=== PATIENT | female | born 1985 | race African-American/Black ===

== ENCOUNTER 2019-01-26 21:02 | Inpatient (IN) ==
[~2019-01-26 21:02] MED LIST: LORazepam 2 MG/1 ML VIAL IV STA
[2019-01-26] MEDS ORDERED: SODIUM CHLORIDE 0.9% 1,000 ML IV STA (21:31)
[2019-01-26] MEDS ORDERED: ALBUTEROL/IPRATROPIUM 3 ML NEB RESP TX STA (21:31)
[2019-01-26] MEDS ORDERED: hydrALAZINE 20 MG/1 ML VIAL IV STA (21:33)
[2019-01-26] MEDS ORDERED: LORazepam 2 MG/1 ML VIAL IV STA (21:50)
[2019-01-26] MEDS ORDERED: LORazepam 2 MG/1 ML VIAL ONE (21:52)
[2019-01-26] MEDS: NITROGLYCERIN DRIP 50 MG/250 ML BOTTLE IV SCH (22:06)
[2019-01-26] MEDS ORDERED: VECURONIUM 10 MG VIAL IV STA (22:24)
[2019-01-26] MEDS ORDERED: ETOMIDATE 20 MG/10 ML VIAL IV STA (22:24)
[2019-01-26] MEDS ORDERED: ROCURONIUM 100 MG/10 ML VIAL IV STA (22:25)
[2019-01-26] MEDS ORDERED: PROPOFOL 1,000 MG/100 ML BOTTLE IV ONE (22:27)
[2019-01-26] MEDS: ALBUTEROL 2.5 MG/3 ML NEB RESP TX SCH (22:59)
[2019-01-26] MEDS ORDERED: ETOMIDATE 20 MG/10 ML VIAL IV ONE (23:29)
[2019-01-26] MEDS ORDERED: ROCURONIUM 100 MG/10 ML VIAL IV ONE (23:29)
[2019-01-26 23:32] LABS: Basophils % 0.3 % (0.0-0.8); Eosinophils # 0.1 10*3/uL (0.0-0.87); Eosinophils % 0.6 % (0.00-10.9); Hematocrit 21.1 VOL% (35.7-47.0); Immature Granulocytes % 2.7 %; Immature Granulocytes Absolute 0.24 #; Lymphocytes # 1.6 10*3/uL (1.4-4.0); Lymphocytes % 17.5 % (21.3-54.2); Mean Corpuscular HGB Conc 29.9 GM/DL (32-36); Mean Corpuscular Volume 85.4 FL (87-102); Monocytes % 4.3 % (1.7-12.7); NRBC # 0.06 10*3/uL; Neutrophils % 74.6 % (38.7-73.9); Platelet Count 85 T/CUMM (130-400); Red Blood Count 2.47 MC/CUMM (3.8-5.5); Red Cell Distribution Width 19.3 % (9.3-17.3)
[2019-01-26 23:33] LABS: Albumin 2.7 G/DL (3.4-5.0); Bilirubin,Total 0.6 MG/DL (0.2-1.0); Calcium 7.9 MG/DL (8.5-10.1); Osmolality,Calculated 279.2 MOS/KG (273-304); Total Protein 8.9 G/DL (6.4-8.3)
[2019-01-26 23:34] LABS: Hemoglobin 6.3 GM/DL (12.0-16.0)
[2019-01-26 23:40] LABS: Band Neutrophils 3 % (0-10); Lymphocytes 15 % (20-55); Segmented Neutrophils 79 % (50-85); Total Cells Counted 100
[2019-01-26 23:40] LABS: ABG Base Excess -9.9 MMOL/L (-2.5-2.5); ABG HCO3 16.4 MMOL/L (20-26); ABG Oxygen Saturation 99.5 % (95-100); ABG PCO2 33.8 MM HG (35-48); ABG PH 7.283 (7.35-7.45); ABG TCO2 15.3 MMOL/L (23-27); Allen Test Positive; Pt O2 Delivery Device Ventilator
[2019-01-26 23:41] LABS: Anisocytosis 1+; Hypochromasia 1+
[2019-01-26 23:42] LABS: Acanthocytes Moderate; Ovalocytes Few; Platelet Estimate Decreased
[2019-01-27] MEDS ORDERED: PROPOFOL 1,000 MG/100 ML BOTTLE IV SCH (01:30)
[2019-01-27] MEDS: PROPOFOL 1,000 MG/100 ML BOTTLE IV SCH (02:00)
[2019-01-27] MEDS ORDERED: FUROSEMIDE 40 MG/4 ML VIAL IV ONE (02:00)
[2019-01-27] MEDS: PANTOPRAZOLE 40 MG VIAL IV SCH ×2 (02:13→21:30)
[2019-01-27] MEDS ORDERED: SODIUM CHLORIDE 0.9% 1,000 ML IV PRN (02:51)
[2019-01-27 02:54] LABS: % Iron Saturation 6.9 % (18-50); Ferritin 45.7 ng/ml (8-252)
[2019-01-27 03:01] LABS: ABG Base Excess -10.3 MMOL/L (-2.5-2.5); ABG HCO3 16.2 MMOL/L (20-26); ABG Oxygen Saturation 98.6 % (95-100); ABG PCO2 36.7 MM HG (35-48); ABG PH 7.253 (7.35-7.45); ABG TCO2 15.2 MMOL/L (23-27); Allen Test Positive; Pt O2 Delivery Device Ventilator
[2019-01-27 03:11] LABS: PT Patient Result 10.8 SECS; Partial Thromboplastin Time 27.7 SECS (0-40)
[2019-01-27 03:13] LABS: Amorphous Crystals,Urine Occasional /HPF (Few); Apearance,Urine CLEAR (Clear); Bilirubin,Urine Negative (Negative); Blood, Urine Moderate mg/dL (Negative); Glucose,Urine (UA) Negative (Negative); Hyaline Casts,Urine 1 /LPF (0-3); Ketones,Urine 5 mg/dL (Negative); Mucus,Urine Occasional /LPF (Occasional); Nitrite,Urine Negative (Negative); Protein,Urine 30 MG/DL; RBC,Urine 20 /HPF (0-4); Squamous Epithelial Cell,Urine Occasional /HPF (0-10); Urine Color Straw (Yellow); Urine Specific Gravity 1.008 (1.001-1.035); Urine Urobilinogen < 2.0 EU/DL (0.2-1.0); WBC,Urine 1 /HPF (0-6)
[2019-01-27 03:14] LABS: Albumin 2.6 G/DL (3.4-5.0); Bilirubin,Total 0.7 MG/DL (0.2-1.0); Calcium 7.7 MG/DL (8.5-10.1); Osmolality,Calculated 278.9 MOS/KG (273-304); Total Protein 8.4 G/DL (6.4-8.3)
[2019-01-27 03:18] LABS: Barbiturates Screen,Urine Negative (Negative); Benzodiazepines Screen,Urine Negative (Negative); Cannabinoid Screen,Urine Negative (Negative); Opiate Screen,Urine Negative (Negative); Phencyclidine Screen,Urine Negative (Negative)
[2019-01-27 06:08] LABS: HIV Antigen/Antibody Result Reactive (Nonreactive)
[2019-01-27 06:10] LABS: Basophils % 0.2 % (0.0-0.8); Eosinophils % 0.1 % (0.00-10.9); Hematocrit 26.1 VOL% (35.7-47.0); Hemoglobin 8.1 GM/DL (12.0-16.0); Immature Granulocytes % 2.5 %; Immature Granulocytes Absolute 0.21 #; Lymphocytes # 1.6 10*3/uL (1.4-4.0); Mean Corpuscular Volume 88.2 FL (87-102); Monocytes % 5.4 % (1.7-12.7); NRBC # 0.08 10*3/uL; Neutrophils % 72.8 % (38.7-73.9); Platelet Count 80 T/CUMM (130-400); Red Blood Count 2.96 MC/CUMM (3.8-5.5); Red Cell Distribution Width 17.8 % (9.3-17.3); White Blood Count 8.4 T/CUMM (4-12)
[2019-01-27] MEDS ORDERED: niCARdipine INJ 25 MG in SODIUM CHLORIDE 0.9% 240 ML IV PRN (07:08)
[2019-01-27 07:17] LABS: Hypochromasia 1+; Lymphocytes 9 % (20-55); Nucleated Red Blood Cells 2 (0-5); Ovalocytes Slight; Platelet Estimate Decreased; Segmented Neutrophils 84 % (50-85); Total Cells Counted 100
[2019-01-27] MEDS: METOPROLOL TARTRATE 5 MG/5 ML VIAL IV SCH ×3 (08:49→18:59)
[2019-01-27] MEDS: methylPREDNISolone SOD SUC 40 MG/1 ML VIAL IV SCH (12:11)
[2019-01-27] MEDS: SULFAMETH IV SCH (13:10)
[2019-01-27] MEDS: DEXTROSE 5% IV SCH (13:10)
[2019-01-27] MEDS: TRIMETH IV SCH (13:10)
[2019-01-27] MEDS ORDERED: FUROSEMIDE 100 MG/10 ML VIAL IV ONE (14:01)
[2019-01-27] MEDS ORDERED: FUROSEMIDE 100 MG/10 ML VIAL ONE (14:02)
[2019-01-27 15:59] LABS: Hepatitis B Surface Ag Quant < 0.10 Index; Hepatitis B Surface Ag Result Negative (Negative); Hepatitis C Virus Ab Quant 0.09 Index; Hepatitis C Virus Ab Result Negative (Negative)
[2019-01-27] MEDS ORDERED: POTASSIUM CHLORIDE 20 MEQ/15 ML UDCUP PO ONE (19:09)
[2019-01-27] MEDS ORDERED: hydrALAZINE 20 MG/1 ML VIAL IV PRN (21:17)
[2019-01-28] MEDS: NITROGLYCERIN DRIP 50 MG/250 ML BOTTLE IV SCH (00:28)
[2019-01-28] MEDS: TRIMETH IV SCH ×2 (00:37→13:11)
[2019-01-28] MEDS: methylPREDNISolone SOD SUC 40 MG/1 ML VIAL IV SCH ×3 (00:37→23:39)
[2019-01-28] MEDS: SULFAMETH IV SCH ×2 (00:37→13:11)
[2019-01-28] MEDS: DEXTROSE 5% IV SCH ×2 (00:37→13:11)
[2019-01-28] MEDS: PROPOFOL 1,000 MG/100 ML BOTTLE IV SCH ×2 (00:38→13:51)
[2019-01-28] MEDS: METOPROLOL TARTRATE 5 MG/5 ML VIAL IV SCH ×2 (00:43→09:07)
[2019-01-28 04:13] LABS: ABG Base Excess -5.6 MMOL/L (-2.5-2.5); ABG HCO3 18.2 MMOL/L (20-26); ABG Oxygen Saturation 75.7 % (95-100); ABG PCO2 29.4 MM HG (35-48); ABG PH 7.409 (7.35-7.45); ABG PO2 43.7 MM HG (80-95); ABG TCO2 19.1 MMOL/L (23-27); Allen Test Positive; Pt O2 Delivery Device Ventilator
[2019-01-28 04:38] LABS: Basophils % 0.1 % (0.0-0.8); Hematocrit 27.6 VOL% (35.7-47.0); Hemoglobin 8.6 GM/DL (12.0-16.0); Immature Granulocytes % 1.7 %; Immature Granulocytes Absolute 0.24 #; Lymphocytes # 1.5 10*3/uL (1.4-4.0); Lymphocytes % 10.7 % (21.3-54.2); Mean Corpuscular HGB Conc 31.2 GM/DL (32-36); Mean Corpuscular Volume 86.8 FL (87-102); Monocytes % 6.6 % (1.7-12.7); NRBC # 0.05 10*3/uL; Neutrophils % 80.9 % (38.7-73.9); Platelet Count 56 T/CUMM (130-400); Red Blood Count 3.18 MC/CUMM (3.8-5.5); White Blood Count 14.2 T/CUMM (4-12)
[2019-01-28 04:49] LABS: ABG Base Excess -5.5 MMOL/L (-2.5-2.5); ABG HCO3 16.9 MMOL/L (20-26); ABG PH 7.465 (7.35-7.45); ABG TCO2 17.6 MMOL/L (23-27)
[2019-01-28 05:04] LABS: Albumin 2.1 G/DL (3.4-5.0); Bilirubin,Total 0.6 MG/DL (0.2-1.0); Calcium 7.9 MG/DL (8.5-10.1); Osmolality,Calculated 278.4 MOS/KG (273-304); Total Protein 7.5 G/DL (6.4-8.3)
[2019-01-28 06:07] LABS: Anisocytosis 1+; Lymphocytes 1 % (20-55); Microcytosis 1+; Segmented Neutrophils 97 % (50-85); Total Cells Counted 100
[2019-01-28 06:10] LABS: Burr Cells Slight; Platelet Estimate Decreased; Target Cells Slight
[2019-01-28] MEDS ORDERED: ALBUMIN 25% 12.5 GM in PREMIX 1 EACH IV ONE (09:52)
[2019-01-28] MEDS: PANTOPRAZOLE 40 MG VIAL IV SCH (09:55)
[2019-01-28] MEDS: METOPROLOL TARTRATE 25 MG TABLET PER TUBE SCH ×2 (09:55→20:23)
[2019-01-28] MEDS ORDERED: HEPARIN 10,000 UNIT/10 ML VIAL IV PRN (14:57)
[2019-01-29] MEDS: TRIMETH IV SCH ×2 (00:39→15:23)
[2019-01-29] MEDS: DEXTROSE 5% IV SCH ×2 (00:39→15:23)
[2019-01-29] MEDS: SULFAMETH IV SCH ×2 (00:39→15:23)
[2019-01-29 03:32] LABS: ABG Base Excess -1.9 MMOL/L (-2.5-2.5); ABG HCO3 21.6 MMOL/L (20-26); ABG PCO2 31.5 MM HG (35-48); ABG PH 7.453 (7.35-7.45); ABG PO2 174.2 MM HG (80-95); ABG TCO2 22.5 MMOL/L (23-27); Allen Test Positive; Pt O2 Delivery Device Ventilator
[2019-01-29 04:23] LABS: Basophils # 0.1 10*3/uL (0.0-0.2); Basophils % 0.4 % (0.0-0.8); Hematocrit 29.3 VOL% (35.7-47.0); Hemoglobin 9.1 GM/DL (12.0-16.0); Immature Granulocytes Absolute 0.36 #; Lymphocytes # 2.3 10*3/uL (1.4-4.0); Lymphocytes % 12.6 % (21.3-54.2); Mean Corpuscular HGB Conc 31.1 GM/DL (32-36); Mean Corpuscular Volume 85.2 FL (87-102); Monocytes % 8.2 % (1.7-12.7); Neutrophils % 76.8 % (38.7-73.9); Red Blood Count 3.44 MC/CUMM (3.8-5.5); Red Cell Distribution Width 18.6 % (9.3-17.3)
[2019-01-29 04:35] LABS: Platelet Count 47 T/CUMM (130-400)
[2019-01-29 04:54] LABS: Albumin 2.3 G/DL (3.4-5.0); Bilirubin,Total 0.5 MG/DL (0.2-1.0); Calcium 7.8 MG/DL (8.5-10.1); Osmolality,Calculated 274.5 MOS/KG (273-304); Total Protein 7.5 G/DL (6.4-8.3)
[2019-01-29 05:06] LABS: Band Neutrophils 28 % (0-10); Lymphocytes 6 % (20-55); Segmented Neutrophils 59 % (50-85); Total Cells Counted 100
[2019-01-29 05:07] LABS: Acanthocytes 1+; Anisocytosis 1+; Hypochromasia 1+; Platelet Estimate Decreased
[2019-01-29] MEDS: PROPOFOL 1,000 MG/100 ML BOTTLE IV SCH (07:59)
[2019-01-29] MEDS: PANTOPRAZOLE 40 MG VIAL IV SCH (08:09)
[2019-01-29] MEDS: METOPROLOL TARTRATE 25 MG TABLET PER TUBE SCH ×2 (08:10→21:00)
[2019-01-29] MEDS: methylPREDNISolone SOD SUC 40 MG/1 ML VIAL IV SCH ×2 (12:41→23:59)
[2019-01-29] MEDS ORDERED: HEPARIN 10,000 UNIT/10 ML VIAL IV SCH (13:30)
[2019-01-29] MEDS ORDERED: ALTEPLASE 2 MG VIAL IV SCH (13:30)
[2019-01-29] MEDS ORDERED: ceFAZolin 1,000 MG in SYRINGE 1 EACH IV ONE (14:53)
[2019-01-29] MEDS ORDERED: HEPARIN 5,000 UNIT/1 ML VIAL ONE (15:30)
[2019-01-29] MEDS ORDERED: LIDOCAINE 1%/EPI INJ 20 ML VIAL ONE (15:30)
[2019-01-29] MEDS ORDERED: PROPOFOL 200 MG/20 ML VIAL IV ONE (16:48)
[2019-01-30] MEDS: TRIMETH IV SCH ×2 (01:30→15:08)
[2019-01-30] MEDS: SULFAMETH IV SCH ×2 (01:30→15:08)
[2019-01-30] MEDS: DEXTROSE 5% IV SCH ×2 (01:30→15:08)
[2019-01-30 04:52] LABS: ABG Base Excess -3.3 MMOL/L (-2.5-2.5); ABG HCO3 21.6 MMOL/L (20-26); ABG Oxygen Saturation 94.9 % (95-100); ABG PCO2 32.3 MM HG (35-48); ABG PH 7.414 (7.35-7.45); ABG PO2 73.5 MM HG (80-95); ABG TCO2 19.2 MMOL/L (23-27)
[2019-01-30 06:06] LABS: Basophils # 0.1 10*3/uL (0.0-0.2); Basophils % 0.3 % (0.0-0.8); Hematocrit 25.8 VOL% (35.7-47.0); Hemoglobin 7.9 GM/DL (12.0-16.0); Immature Granulocytes % 5.1 %; Immature Granulocytes Absolute 1.08 #; Lymphocytes # 2.6 10*3/uL (1.4-4.0); Lymphocytes % 12.3 % (21.3-54.2); Mean Corpuscular HGB Conc 30.6 GM/DL (32-36); Mean Corpuscular Volume 85.1 FL (87-102); Monocytes % 5.3 % (1.7-12.7); NRBC # 0.15 10*3/uL; Platelet Count 100 T/CUMM (130-400); Red Blood Count 3.03 MC/CUMM (3.8-5.5); Red Cell Distribution Width 18.4 % (9.3-17.3); White Blood Count 21.1 T/CUMM (4-12)
[2019-01-30 06:22] LABS: Albumin 2.4 G/DL (3.4-5.0); Bilirubin,Total 0.4 MG/DL (0.2-1.0); Calcium 7.9 MG/DL (8.5-10.1); Osmolality,Calculated 268.2 MOS/KG (273-304); Total Protein 7.9 G/DL (6.4-8.3)
[2019-01-30 06:29] LABS: Band Neutrophils 1 % (0-10); Lymphocytes 8 % (20-55); Nucleated Red Blood Cells 1 (0-5); Segmented Neutrophils 89 % (50-85); Total Cells Counted 100
[2019-01-30 06:30] LABS: Hypochromasia 1+; Ovalocytes Slight; Platelet Estimate Decreased
[2019-01-30 06:31] LABS: Microcytosis Slight
[2019-01-30] MEDS: METOPROLOL TARTRATE 25 MG TABLET PER TUBE SCH (08:06)
[2019-01-30] MEDS: METOPROLOL TARTRATE 25 MG TABLET PO SCH ×2 (08:27→20:40)
[2019-01-30] MEDS: PANTOPRAZOLE 40 MG VIAL IV SCH (08:28)
[2019-01-30] MEDS: methylPREDNISolone SOD SUC 40 MG/1 ML VIAL IV SCH ×2 (12:51→22:09)
[2019-01-31] MEDS: ALBUTEROL 2.5 MG/3 ML NEB RESP TX PRN (01:05)
[2019-01-31] MEDS: DEXTROSE 5% IV SCH (01:49)
[2019-01-31] MEDS: TRIMETH IV SCH (01:49)
[2019-01-31] MEDS: SULFAMETH IV SCH (01:49)
[2019-01-31 04:47] LABS: Basophils % 0.2 % (0.0-0.8); Hematocrit 24.9 VOL% (35.7-47.0); Hemoglobin 7.6 GM/DL (12.0-16.0); Immature Granulocytes % 4.8 %; Immature Granulocytes Absolute 0.93 #; Lymphocytes # 2.8 10*3/uL (1.4-4.0); Lymphocytes % 14.4 % (21.3-54.2); Mean Corpuscular HGB Conc 30.5 GM/DL (32-36); Mean Corpuscular Volume 85.6 FL (87-102); Monocytes % 6.7 % (1.7-12.7); NRBC # 0.31 10*3/uL; Neutrophils % 73.9 % (38.7-73.9); Red Blood Count 2.91 MC/CUMM (3.8-5.5); Red Cell Distribution Width 18.7 % (9.3-17.3); White Blood Count 19.3 T/CUMM (4-12)
[2019-01-31 04:56] LABS: Platelet Count 92 T/CUMM (130-400)
[2019-01-31 05:05] LABS: Osmolality,Calculated 263.9 MOS/KG (273-304)
[2019-01-31 06:09] LABS: Hypochromasia 1+; Lymphocytes 16 % (20-55); Metamyelocytes 1 %; Nucleated Red Blood Cells 1 (0-5); Platelet Estimate Decreased; Polychromasia Few; Segmented Neutrophils 78 % (50-85); Target Cells Few; Total Cells Counted 100
[2019-01-31 06:26] LABS: Pneumocystis jiroveci Result Negative (Negative); Pneumocystis jiroveci Source SPUTUM
[2019-01-31] MEDS: METOPROLOL TARTRATE 25 MG TABLET PO SCH ×2 (08:37→22:36)
[2019-01-31] MEDS: PANTOPRAZOLE 40 MG TABLET PO SCH (08:38)
[2019-01-31] MEDS ORDERED: ONDANSETRON 4 MG/2 ML VIAL IV PRN (13:46)
[2019-01-31] MEDS: methylPREDNISolone SOD SUC 40 MG/1 ML VIAL IV SCH ×2 (14:02→22:36)
[2019-01-31] MEDS: NIFEdipine 10 MG CAPSULE PO PRN (15:59)
[2019-01-31] MEDS: SULFAMETHOX/TRIMETHOPRIM 800-160 MG TABLET PO SCH (22:36)
[2019-01-31] MEDS: guaiFENesin/DM ER 600-30 MG TABLET PO SCH (22:36)
[2019-02-01 05:47] LABS: Basophils % 0.2 % (0.0-0.8); Hematocrit 25.3 VOL% (35.7-47.0); Hemoglobin 7.5 GM/DL (12.0-16.0); Immature Granulocytes % 4.3 %; Lymphocytes # 1.9 10*3/uL (1.4-4.0); Lymphocytes % 11.9 % (21.3-54.2); Mean Corpuscular HGB Conc 29.6 GM/DL (32-36); Mean Corpuscular Volume 88.2 FL (87-102); Monocytes % 7.9 % (1.7-12.7); Neutrophils % 75.7 % (38.7-73.9); Red Blood Count 2.87 MC/CUMM (3.8-5.5); Red Cell Distribution Width 18.3 % (9.3-17.3); White Blood Count 16.3 T/CUMM (4-12)
[2019-02-01 05:51] LABS: Platelet Count 91 T/CUMM (130-400)
[2019-02-01 06:09] LABS: Hypochromasia 1+; Lymphocytes 7 % (20-55); Nucleated Red Blood Cells 3 (0-5); Platelet Estimate Decreased; Segmented Neutrophils 82 % (50-85); Total Cells Counted 100
[2019-02-01 06:10] LABS: Microcytosis Slight
[2019-02-01 06:23] LABS: Albumin 2.3 G/DL (3.4-5.0); Bilirubin,Total 0.7 MG/DL (0.2-1.0); Calcium 8.2 MG/DL (8.5-10.1); Osmolality,Calculated 270.2 MOS/KG (273-304); Total Protein 7.9 G/DL (6.4-8.3)
[2019-02-01] MEDS: NIFEdipine 10 MG CAPSULE PO PRN (08:54)
[2019-02-01] MEDS: SULFAMETHOX/TRIMETHOPRIM 800-160 MG TABLET PO SCH ×2 (08:54→20:51)
[2019-02-01] MEDS: guaiFENesin/DM ER 600-30 MG TABLET PO SCH ×2 (08:54→20:51)
[2019-02-01] MEDS: PANTOPRAZOLE 40 MG TABLET PO SCH (08:54)
[2019-02-01] MEDS: AZITHROMYCIN 250 MG TABLET PO SCH (08:54)
[2019-02-01] MEDS: METOPROLOL TARTRATE 25 MG TABLET PO SCH ×2 (08:54→20:51)
[2019-02-01] MEDS: methylPREDNISolone SOD SUC 40 MG/1 ML VIAL IV SCH ×2 (11:56→23:57)
[2019-02-01 20:11] LABS: % CD4 (T Cells) 7 % (32-64); % CD8 (T Cells) 72 % (15-40); 4/8 Ratio 0.1 (>=0.9)
[2019-02-02] MEDS: ALBUTEROL 2.5 MG/3 ML NEB RESP TX PRN ×3 (00:15→11:36)
[2019-02-02] MEDS: METOPROLOL TARTRATE 25 MG TABLET PO SCH ×2 (09:16→21:10)
[2019-02-02] MEDS: PANTOPRAZOLE 40 MG TABLET PO SCH (09:16)
[2019-02-02] MEDS: AZITHROMYCIN 250 MG TABLET PO SCH (09:16)
[2019-02-02] MEDS: SULFAMETHOX/TRIMETHOPRIM 800-160 MG TABLET PO SCH ×2 (09:16→21:10)
[2019-02-02] MEDS: methylPREDNISolone SOD SUC 40 MG/1 ML VIAL IV SCH ×2 (09:17→10:36)
[2019-02-02] MEDS: guaiFENesin/DM ER 600-30 MG TABLET PO SCH ×2 (09:18→21:11)
[2019-02-02] MEDS: ALBUTEROL 2.5 MG/3 ML NEB RESP TX SCH ×3 (14:31→23:26)
[2019-02-03] MEDS: NYSTATIN 500,000 UNIT/5 ML UDCUP SWISH/SWAL SCH ×5 (00:29→21:47)
[2019-02-03] MEDS: ALBUTEROL 2.5 MG/3 ML NEB RESP TX SCH ×7 (03:11→23:00)
[2019-02-03 08:56] LABS: HIV 1 RNA Quant Reflex to Geno 701000 copies/mL (Undetected)
[2019-02-03] MEDS: SULFAMETHOX/TRIMETHOPRIM 800-160 MG TABLET PO SCH ×2 (12:21→21:47)
[2019-02-03] MEDS: METOPROLOL TARTRATE 25 MG TABLET PO SCH ×2 (12:22→21:47)
[2019-02-03] MEDS: AZITHROMYCIN 250 MG TABLET PO SCH (12:22)
[2019-02-03] MEDS: PANTOPRAZOLE 40 MG TABLET PO SCH (12:22)
[2019-02-03] MEDS: guaiFENesin/DM ER 600-30 MG TABLET PO SCH ×2 (12:28→21:47)
[2019-02-03] MEDS: DOCUSATE SODIUM 100 MG CAPSULE PO SCH (13:38)
[2019-02-04] MEDS: ALBUTEROL 2.5 MG/3 ML NEB RESP TX SCH ×6 (03:00→23:10)
[2019-02-04 06:54] LABS: Basophils % 0.1 % (0.0-0.8); Eosinophils % 0.3 % (0.00-10.9); Hematocrit 23.8 VOL% (35.7-47.0); Hemoglobin 6.9 GM/DL (12.0-16.0); Immature Granulocytes % 1.5 %; Immature Granulocytes Absolute 0.14 #; Lymphocytes # 1.2 10*3/uL (1.4-4.0); Lymphocytes % 12.5 % (21.3-54.2); Mean Corpuscular Volume 88.8 FL (87-102); Monocytes % 11.2 % (1.7-12.7); NRBC # 0.05 10*3/uL; Neutrophils % 74.4 % (38.7-73.9); Red Blood Count 2.68 MC/CUMM (3.8-5.5); Red Cell Distribution Width 17.9 % (9.3-17.3); White Blood Count 9.3 T/CUMM (4-12)
[2019-02-04 06:55] LABS: Platelet Count 92 T/CUMM (130-400)
[2019-02-04 07:13] LABS: Hypochromasia 1+; Ovalocytes Slight; Platelet Estimate Decreased
[2019-02-04 07:14] LABS: Microcytosis Slight
[2019-02-04 07:35] LABS: Calcium 8.3 MG/DL (8.5-10.1); Osmolality,Calculated 267.4 MOS/KG (273-304)
[2019-02-04] MEDS: SULFAMETHOX/TRIMETHOPRIM 800-160 MG TABLET PO SCH ×2 (09:22→22:41)
[2019-02-04] MEDS: guaiFENesin/DM ER 600-30 MG TABLET PO SCH ×2 (09:22→22:41)
[2019-02-04] MEDS: DOCUSATE SODIUM 100 MG CAPSULE PO SCH (09:22)
[2019-02-04] MEDS: AZITHROMYCIN 250 MG TABLET PO SCH (09:22)
[2019-02-04] MEDS: PANTOPRAZOLE 40 MG TABLET PO SCH (09:23)
[2019-02-04] MEDS: NYSTATIN 500,000 UNIT/5 ML UDCUP SWISH/SWAL SCH ×4 (09:23→22:41)
[2019-02-04] MEDS: METOPROLOL TARTRATE 25 MG TABLET PO SCH ×2 (09:23→22:41)
[2019-02-05] MEDS: ALBUTEROL 2.5 MG/3 ML NEB RESP TX SCH ×7 (03:00→22:49)
[2019-02-05 07:14] LABS: Basophils % 0.2 % (0.0-0.8); Eosinophils # 0.1 10*3/uL (0.0-0.87); Eosinophils % 0.5 % (0.00-10.9); Hematocrit 23.3 VOL% (35.7-47.0); Hemoglobin 6.7 GM/DL (12.0-16.0); Immature Granulocytes % 1.6 %; Immature Granulocytes Absolute 0.15 #; Lymphocytes # 1.1 10*3/uL (1.4-4.0); Lymphocytes % 11.9 % (21.3-54.2); Mean Corpuscular HGB Conc 28.8 GM/DL (32-36); Monocytes % 7.7 % (1.7-12.7); NRBC # 0.03 10*3/uL; Neutrophils % 78.1 % (38.7-73.9); Platelet Count 85 T/CUMM (130-400); Red Blood Count 2.59 MC/CUMM (3.8-5.5); Red Cell Distribution Width 17.6 % (9.3-17.3); White Blood Count 9.5 T/CUMM (4-12)
[2019-02-05 07:19] LABS: Hypochromasia 1+; Microcytosis Slight; Ovalocytes Slight; Platelet Estimate Decreased
[2019-02-05 07:29] LABS: Calcium 8.2 MG/DL (8.5-10.1); Osmolality,Calculated 275.2 MOS/KG (273-304)
[2019-02-05] MEDS: METOPROLOL TARTRATE 25 MG TABLET PO SCH ×3 (09:24→21:16)
[2019-02-05] MEDS: NYSTATIN 500,000 UNIT/5 ML UDCUP SWISH/SWAL SCH ×4 (09:25→21:16)
[2019-02-05] MEDS: SULFAMETHOX/TRIMETHOPRIM 800-160 MG TABLET PO SCH ×2 (09:26→21:16)
[2019-02-05] MEDS: AZITHROMYCIN 250 MG TABLET PO SCH (09:26)
[2019-02-05] MEDS: guaiFENesin/DM ER 600-30 MG TABLET PO SCH ×2 (09:26→21:19)
[2019-02-05] MEDS: DOCUSATE SODIUM 100 MG CAPSULE PO SCH (09:26)
[2019-02-05] MEDS: PANTOPRAZOLE 40 MG TABLET PO SCH (09:26)
[2019-02-05] MEDS ORDERED: SODIUM CHLORIDE 0.9% 1,000 ML IV PRN (09:41)
[2019-02-05] MEDS: MONTELUKAST 10 MG TABLET PO SCH (12:16)
[2019-02-05] MEDS: NIFEdipine 10 MG CAPSULE PO PRN ×2 (17:44→21:16)
[2019-02-06] MEDS: ALBUTEROL 2.5 MG/3 ML NEB RESP TX SCH ×5 (02:38→19:39)
[2019-02-06 06:04] LABS: Basophils % 0.3 % (0.0-0.8); Eosinophils # 0.1 10*3/uL (0.0-0.87); Eosinophils % 0.5 % (0.00-10.9); Hematocrit 36.1 VOL% (35.7-47.0); Hemoglobin 11.2 GM/DL (12.0-16.0); Immature Granulocytes % 0.7 %; Immature Granulocytes Absolute 0.07 #; Lymphocytes # 1.2 10*3/uL (1.4-4.0); Lymphocytes % 12.1 % (21.3-54.2); Mean Corpuscular Volume 87.8 FL (87-102); Monocytes % 8.2 % (1.7-12.7); Neutrophils % 78.2 % (38.7-73.9); Red Blood Count 4.11 MC/CUMM (3.8-5.5); Red Cell Distribution Width 17.2 % (9.3-17.3); White Blood Count 9.7 T/CUMM (4-12)
[2019-02-06 06:07] LABS: Platelet Count 79 T/CUMM (130-400)
[2019-02-06 06:37] LABS: Platelet Estimate Decreased
[2019-02-06 06:45] LABS: Polychromasia Few
[2019-02-06] MEDS: guaiFENesin/DM ER 600-30 MG TABLET PO SCH ×2 (10:26→20:51)
[2019-02-06] MEDS: NYSTATIN 500,000 UNIT/5 ML UDCUP SWISH/SWAL SCH ×4 (10:26→20:51)
[2019-02-06] MEDS: METOPROLOL TARTRATE 25 MG TABLET PO SCH ×2 (10:26→20:51)
[2019-02-06] MEDS: AZITHROMYCIN 250 MG TABLET PO SCH (10:26)
[2019-02-06] MEDS: PANTOPRAZOLE 40 MG TABLET PO SCH (10:26)
[2019-02-06] MEDS: SULFAMETHOX/TRIMETHOPRIM 800-160 MG TABLET PO SCH ×2 (10:26→20:51)
[2019-02-06] MEDS: MONTELUKAST 10 MG TABLET PO SCH (10:26)
[2019-02-06] MEDS: DOCUSATE SODIUM 100 MG CAPSULE PO SCH (10:26)
[2019-02-06 11:13] LABS: PT Patient Result 10.7 SECS
[2019-02-06] MEDS: NIFEdipine 10 MG CAPSULE PO PRN ×2 (13:52→20:50)
[2019-02-07] MEDS: ALBUTEROL 2.5 MG/3 ML NEB RESP TX SCH ×4 (00:16→11:34)
[2019-02-07] MEDS: METOPROLOL TARTRATE 25 MG TABLET PO SCH (08:05)
[2019-02-07] MEDS: SULFAMETHOX/TRIMETHOPRIM 800-160 MG TABLET PO SCH (08:06)
[2019-02-07] MEDS: NYSTATIN 500,000 UNIT/5 ML UDCUP SWISH/SWAL SCH ×2 (08:06→14:45)
[2019-02-07] MEDS: DOCUSATE SODIUM 100 MG CAPSULE PO SCH (10:31)
[2019-02-07] MEDS: PANTOPRAZOLE 40 MG TABLET PO SCH (14:45)
[2019-02-07] MEDS: guaiFENesin/DM ER 600-30 MG TABLET PO SCH (14:45)
[2019-02-07] MEDS: MONTELUKAST 10 MG TABLET PO SCH (14:45)
[2019-02-07 15:04] VITALS: BP 161/115
[2019-02-12 15:23] LABS: HIV-1 Genotypic PR-RT Drug Res INTERP; Tipranavir + Ritonavir SUSC
== END 2019-02-07 15:30 | disposition home or self-care (01) | DRG 208 ==
LOC: N.ED 21:02 → SUATTDRO 01-27 01:17 → N.EDINP 01-27 01:17 → N.ICU 01-27 13:03 → N.5E 01-30 17:53
PROVIDERS: ADMIT Internal Medicine; ATTEND Internal Medicine
PROC: IRTHORA (2019-02-06 14:00)

== ENCOUNTER 2019-03-23 16:57 | Inpatient (IN) ==
[2019-03-23] MEDS ORDERED: hydrALAZINE 20 MG/1 ML VIAL IV STA ×2 (18:58→19:47)
[2019-03-23] MEDS ORDERED: LABETALOL 20 MG/4 ML SYRINGE IV STA ×4 (18:58→22:22)
[2019-03-23 19:46] LABS: Basophils % 0.4 % (0.0-0.8); Eosinophils # 0.1 10*3/uL (0.0-0.87); Eosinophils % 1.2 % (0.00-10.9); Hematocrit 31.9 VOL% (35.7-47.0); Hemoglobin 9.6 GM/DL (12.0-16.0); Immature Granulocytes % 0.4 %; Immature Granulocytes Absolute 0.02 #; Lymphocytes # 2.2 10*3/uL (1.4-4.0); Lymphocytes % 45.7 % (21.3-54.2); Mean Corpuscular HGB Conc 30.1 GM/DL (32-36); Mean Corpuscular Volume 91.7 FL (87-102); Mean Platelet Volume 10.9 FL (9.6-12.0); Monocytes % 6.6 % (1.7-12.7); Neutrophils % 45.7 % (38.7-73.9); Platelet Count 65 T/CUMM (130-400); Red Blood Count 3.48 MC/CUMM (3.8-5.5); Red Cell Distribution Width 18.1 % (9.3-17.3); White Blood Count 4.9 T/CUMM (4-12)
[2019-03-23 20:03] LABS: Albumin 2.7 G/DL (3.4-5.0); Bilirubin,Total 0.4 MG/DL (0.2-1.0); Calcium 8.2 MG/DL (8.5-10.1); Osmolality,Calculated 289.5 MOS/KG (273-304); Total Protein 8.9 G/DL (6.4-8.3)
[2019-03-23] MEDS ORDERED: LABETALOL 100 MG/20 ML VIAL IV STA (21:48)
[2019-03-23] MEDS ORDERED: niCARdipine INJ 25 MG in SODIUM CHLORIDE 0.9% 250 ML IV PRN (22:59)
[2019-03-23] MEDS ORDERED: ONDANSETRON 4 MG/2 ML VIAL IV PRN (23:54)
[2019-03-23] MEDS ORDERED: ACETAMINOPHEN 500 MG TABLET PO PRN (23:54)
[2019-03-24 05:07] LABS: Basophils % 0.4 % (0.0-0.8); Eosinophils % 0.1 % (0.00-10.9); Hematocrit 27.2 VOL% (35.7-47.0); Hemoglobin 8.5 GM/DL (12.0-16.0); Immature Granulocytes Absolute 0.08 #; Lymphocytes # 2.7 10*3/uL (1.4-4.0); Lymphocytes % 35.7 % (21.3-54.2); Mean Corpuscular HGB Conc 31.3 GM/DL (32-36); Mean Corpuscular Volume 90.1 FL (87-102); Mean Platelet Volume 11.8 FL (9.6-12.0); Monocytes % 4.9 % (1.7-12.7); Neutrophils % 57.9 % (38.7-73.9); Platelet Count 76 T/CUMM (130-400); Red Blood Count 3.02 MC/CUMM (3.8-5.5); Red Cell Distribution Width 18.4 % (9.3-17.3); White Blood Count 7.6 T/CUMM (4-12)
[2019-03-24 05:40] LABS: Calcium 8.9 MG/DL (8.5-10.1); Osmolality,Calculated 294.3 MOS/KG (273-304)
[2019-03-24 05:49] LABS: Lymphocytes 27 % (20-55); Myelocytes 1 %; Platelet Estimate Decreased; Segmented Neutrophils 69 % (50-85); Total Cells Counted 100
[2019-03-24 05:50] LABS: Hypochromasia 1+; Microcytosis Slight
[2019-03-24 08:15] VITALS: BP 132/87
[2019-03-24] MEDS ORDERED: traMADol 50 MG TABLET PO PRN (13:25)
[2019-03-24] MEDS: METOPROLOL TARTRATE 25 MG TABLET PO SCH ×2 (15:00→19:31)
[2019-03-24] MEDS: PANTOPRAZOLE 40 MG TABLET PO SCH (15:00)
[2019-03-24] MEDS: ASCORBIC ACID 500 MG TABLET PO SCH (15:00)
[2019-03-24] MEDS: MONTELUKAST 10 MG TABLET PO SCH (15:00)
[2019-03-24] MEDS: CYANOCOBALAMIN 500 MCG TABLET PO SCH (15:00)
[2019-03-24] MEDS: CHOLECALCIFEROL 1,000 UNIT TABLET PO SCH (15:00)
[2019-03-24] MEDS: ZINC GLUCONATE 50 MG TABLET PO SCH (19:42)
[2019-03-25 06:46] LABS: Calcium 8.8 MG/DL (8.5-10.1); Osmolality,Calculated 269.2 MOS/KG (273-304)
[2019-03-25] MEDS: PANTOPRAZOLE 40 MG TABLET PO SCH (09:07)
[2019-03-25] MEDS: ASCORBIC ACID 500 MG TABLET PO SCH (09:07)
[2019-03-25] MEDS: CHOLECALCIFEROL 1,000 UNIT TABLET PO SCH (09:07)
[2019-03-25] MEDS: MONTELUKAST 10 MG TABLET PO SCH (09:07)
[2019-03-25] MEDS: METOPROLOL TARTRATE 25 MG TABLET PO SCH (09:07)
[2019-03-25] MEDS: CYANOCOBALAMIN 500 MCG TABLET PO SCH (09:08)
[2019-03-25] MEDS: ZINC GLUCONATE 50 MG TABLET PO SCH (09:08)
[2019-03-26 10:37] LABS: % CD4 (T Cells) 6 % (32-64); % CD8 (T Cells) 83 % (15-40); 4/8 Ratio 0.1 (>=0.9)
== END 2019-03-25 12:20 | disposition home or self-care (01) | DRG 199 ==
LOC: N.EDINP 16:57 → N.ED 16:57 → N.ICU 03-24 01:15 → SUPCPDRO 03-24 08:05
PROVIDERS: ADMIT Internal Medicine; ATTEND Internal Medicine

== ENCOUNTER 2019-09-12 07:01 | Inpatient (IN) ==
[2019-09-12] MEDS: SODIUM CHLORIDE 0.9% 1,000 ML IV SCH (07:42)
[2019-09-12] MEDS ORDERED: LIDOCAINE 2% 5 ML VIAL ONE (09:00)
[2019-09-12] MEDS ORDERED: PROPOFOL 200 MG/20 ML VIAL IV ONE (09:00)
[2019-09-12] MEDS ORDERED: LABETALOL 100 MG/20 ML VIAL IV ONE (09:00)
[2019-09-12 10:44] LABS: Basophils % 0.6 % (0.0-0.8); Eosinophils # 0.2 10*3/uL (0.0-0.87); Eosinophils % 2.1 % (0.00-10.9); Hematocrit 34.1 VOL% (35.7-47.0); Hemoglobin 10.8 GM/DL (12.0-16.0); Immature Granulocytes % 0.1 %; Immature Granulocytes Absolute 0.01 #; Lymphocytes # 1.7 10*3/uL (1.4-4.0); Lymphocytes % 23.6 % (21.3-54.2); Mean Corpuscular HGB Conc 31.7 GM/DL (32-36); Mean Corpuscular Volume 90.5 FL (87-102); Mean Platelet Volume 9.4 FL (9.6-12.0); Monocytes % 6.9 % (1.7-12.7); Neutrophils % 66.7 % (38.7-73.9); Platelet Count 218 T/CUMM (130-400); Red Blood Count 3.77 MC/CUMM (3.8-5.5); Red Cell Distribution Width 15.7 % (9.3-17.3); White Blood Count 7.1 T/CUMM (4-12)
[2019-09-12] MEDS ORDERED: hydrALAZINE 20 MG/1 ML VIAL IV PRN (10:54)
[2019-09-12] MEDS ORDERED: cloNIDine 0.3 MG/24 HR PATCH TRANSDERM SCH (11:00)
[2019-09-12 11:03] LABS: Alanine Aminotransferase 55 U/L (13-56); Albumin 2.6 G/DL (3.4-5.0); Alkaline Phosphatase 93 U/L (45-117); Aspartate Amino Transferase 24 U/L (0-37); Bilirubin,Total < 0.39 MG/DL (0.2-1.0); Blood Urea Nitrogen 53 MG/DL (7-18); Calcium 8.7 MG/DL (8.5-10.1); Estimated Glom Filtration Rate 6 ML/MIN; Glucose 92 MG/DL (74-106); Osmolality,Calculated 288.7 MOS/KG (273-304)
[2019-09-12] MEDS ORDERED: SULFAMETHOX/TRIMETHOPRIM 200-40 MG/5 ML -20 ML UDCUP PO SCH (12:00)
[2019-09-12] MEDS ORDERED: FLUCONAZOLE INJ 200 MG in PREMIX 1 EACH IV ONE (15:47)
[2019-09-12] MEDS: metroNIDAZOLE INJ 500 MG in PREMIX 1 EACH IV SCH (15:52)
[2019-09-12] MEDS: cefTRIAXone 2,000 MG in SYRINGE 1 EACH IV SCH (15:52)
[2019-09-12] MEDS: ONDANSETRON 4 MG/2 ML VIAL IV PRN (16:14)
[2019-09-13] MEDS: metroNIDAZOLE INJ 500 MG in PREMIX 1 EACH IV SCH ×3 (01:20→15:39)
[2019-09-13 06:23] LABS: Basophils % 0.5 % (0.0-0.8); Eosinophils # 0.2 10*3/uL (0.0-0.87); Hematocrit 29.5 VOL% (35.7-47.0); Hemoglobin 9.3 GM/DL (12.0-16.0); Immature Granulocytes % 0.4 %; Immature Granulocytes Absolute 0.03 #; Lymphocytes # 1.7 10*3/uL (1.4-4.0); Lymphocytes % 22.4 % (21.3-54.2); Mean Corpuscular HGB Conc 31.5 GM/DL (32-36); Mean Corpuscular Volume 90.5 FL (87-102); Mean Platelet Volume 11.2 FL (9.6-12.0); Monocytes % 8.6 % (1.7-12.7); Neutrophils % 65.1 % (38.7-73.9); Red Blood Count 3.26 MC/CUMM (3.8-5.5); Red Cell Distribution Width 15.7 % (9.3-17.3); White Blood Count 7.4 T/CUMM (4-12)
[2019-09-13 06:25] LABS: Platelet Count 172 T/CUMM (130-400)
[2019-09-13 06:38] LABS: Hypochromasia 2+; Platelet Estimate Normal
[2019-09-13 06:41] LABS: Albumin 2.7 G/DL (3.4-5.0); Bilirubin,Total 0.5 MG/DL (0.2-1.0); Calcium 8.7 MG/DL (8.5-10.1); Osmolality,Calculated 287.4 MOS/KG (273-304)
[2019-09-13] MEDS: SODIUM CHLORIDE 0.9% 1,000 ML IV SCH (07:57)
[2019-09-13] MEDS: hydrALAZINE 20 MG/1 ML VIAL IV SCH ×3 (09:04→20:40)
[2019-09-13] MEDS: ONDANSETRON 4 MG/2 ML VIAL IV PRN ×3 (10:37→20:40)
[2019-09-13] MEDS ORDERED: PROMETHAZINE INJ 12.5 MG in SODIUM CHLORIDE 0.9% 50 ML IV PRN (11:08)
[2019-09-13] MEDS ORDERED: TRIMETH IV SCH (14:00)
[2019-09-13] MEDS ORDERED: DEXTROSE 5% IV SCH (14:00)
[2019-09-13] MEDS ORDERED: SULFAMETH IV SCH (14:00)
[2019-09-13] MEDS ORDERED: MORPHINE 4 MG/1 ML VIAL IV ONE (15:27)
[2019-09-13] MEDS ORDERED: SCOPOLAMINE 1.5 MG PATCH TRANSDERM ONE (15:27)
[2019-09-13] MEDS: cefTRIAXone 2,000 MG in SYRINGE 1 EACH IV SCH (15:39)
[2019-09-13] MEDS: FLUCONAZOLE INJ 100 MG in IV BAG 1 EACH IV SCH (16:20)
[2019-09-13] MEDS ORDERED: LABETALOL 20 MG/4 ML SYRINGE IV PRN (21:42)
[2019-09-13] MEDS ORDERED: METOCLOPRAMIDE 10 MG TABLET PO PRN (21:43)
[2019-09-13] MEDS: KETOROLAC 15 MG/1 ML VIAL IV PRN (22:02)
[2019-09-14] MEDS: metroNIDAZOLE INJ 500 MG in PREMIX 1 EACH IV SCH ×3 (00:14→17:11)
[2019-09-14] MEDS: SODIUM CHLORIDE 0.9% 1,000 ML IV SCH (08:58)
[2019-09-14] MEDS: KETOROLAC 15 MG/1 ML VIAL IV PRN ×3 (09:02→21:25)
[2019-09-14] MEDS: hydrALAZINE 20 MG/1 ML VIAL IV PRN ×3 (09:25→21:23)
[2019-09-14] MEDS: ONDANSETRON 4 MG/2 ML VIAL IV PRN ×2 (10:55→21:28)
[2019-09-14] MEDS: SULFAMETH/TRIMETH INJ 200 MG in DEXTROSE 5% 250 ML IV SCH (13:49)
[2019-09-14] MEDS: FLUCONAZOLE INJ 100 MG in IV BAG 1 EACH IV SCH (15:52)
[2019-09-14] MEDS: cefTRIAXone 2,000 MG in SYRINGE 1 EACH IV SCH (15:53)
[2019-09-15] MEDS: metroNIDAZOLE INJ 500 MG in PREMIX 1 EACH IV SCH ×3 (00:07→17:57)
[2019-09-15] MEDS: hydrALAZINE 20 MG/1 ML VIAL IV PRN ×5 (09:26→20:25)
[2019-09-15] MEDS ORDERED: cloNIDine 0.1 MG/24 HR PATCH TRANSDERM SCH (14:00)
[2019-09-15] MEDS: SODIUM CHLORIDE 0.9% 1,000 ML IV SCH (14:01)
[2019-09-15] MEDS: KETOROLAC 15 MG/1 ML VIAL IV PRN (14:25)
[2019-09-15] MEDS ORDERED: NITROGLYCERIN 2% OINT 1 INCH/GM PACK TOP ONE (14:39)
[2019-09-15] MEDS: ONDANSETRON 4 MG/2 ML VIAL IV PRN (14:58)
[2019-09-15] MEDS ORDERED: METOPROLOL TARTRATE 5 MG/5 ML VIAL IV ONE ×2 (15:49→15:50)
[2019-09-15] MEDS ORDERED: MORPHINE 4 MG/1 ML VIAL IV ONE (15:51)
[2019-09-15] MEDS: cefTRIAXone 2,000 MG in SYRINGE 1 EACH IV SCH (17:19)
[2019-09-15] MEDS: FLUCONAZOLE INJ 100 MG in IV BAG 1 EACH IV SCH (17:22)
[2019-09-15] MEDS ORDERED: MORPHINE 4 MG/1 ML VIAL IV PRN (17:31)
[2019-09-15] MEDS: LABETALOL 20 MG/4 ML SYRINGE IV SCH ×2 (17:52→23:59)
[2019-09-16] MEDS: metroNIDAZOLE INJ 500 MG in PREMIX 1 EACH IV SCH ×3 (00:09→17:01)
[2019-09-16] MEDS: LABETALOL 20 MG/4 ML SYRINGE IV SCH ×4 (04:58→23:05)
[2019-09-16] MEDS: SODIUM CHLORIDE 0.9% 1,000 ML IV SCH (08:03)
[2019-09-16] MEDS: cefTRIAXone 2,000 MG in SYRINGE 1 EACH IV SCH (14:46)
[2019-09-16] MEDS: SULFAMETH/TRIMETH INJ 200 MG in DEXTROSE 5% 250 ML IV SCH (14:50)
[2019-09-16] MEDS: hydrALAZINE 20 MG/1 ML VIAL IV PRN (16:21)
[2019-09-16] MEDS: FLUCONAZOLE INJ 100 MG in IV BAG 1 EACH IV SCH (16:24)
[2019-09-17] MEDS: metroNIDAZOLE INJ 500 MG in PREMIX 1 EACH IV SCH ×2 (00:16→08:46)
[2019-09-17] MEDS: hydrALAZINE 20 MG/1 ML VIAL IV PRN ×2 (01:24→14:52)
[2019-09-17 05:40] LABS: Basophils # 0.1 10*3/uL (0.0-0.2); Basophils % 0.5 % (0.0-0.8); Eosinophils # 0.4 10*3/uL (0.0-0.87); Eosinophils % 3.8 % (0.00-10.9); Hematocrit 34.3 VOL% (35.7-47.0); Hemoglobin 10.8 GM/DL (12.0-16.0); Immature Granulocytes % 0.6 %; Immature Granulocytes Absolute 0.07 #; Lymphocytes # 1.3 10*3/uL (1.4-4.0); Lymphocytes % 11.5 % (21.3-54.2); Mean Corpuscular HGB Conc 31.5 GM/DL (32-36); Mean Corpuscular Volume 91.7 FL (87-102); Mean Platelet Volume 9.3 FL (9.6-12.0); Monocytes % 6.1 % (1.7-12.7); Neutrophils % 77.5 % (38.7-73.9); Platelet Count 250 T/CUMM (130-400); Red Blood Count 3.74 MC/CUMM (3.8-5.5); Red Cell Distribution Width 15.7 % (9.3-17.3); White Blood Count 10.9 T/CUMM (4-12)
[2019-09-17 05:56] LABS: Calcium 8.1 MG/DL (8.5-10.1); Osmolality,Calculated 288.3 MOS/KG (273-304)
[2019-09-17] MEDS: LABETALOL 20 MG/4 ML SYRINGE IV SCH ×4 (06:03→23:34)
[2019-09-17] MEDS ORDERED: MAGNESIUM SULF RIDER 4 GM in PREMIX 1 EACH IV PRN (07:59)
[2019-09-17] MEDS ORDERED: MAGNESIUM SULF RIDER 2 GM in PREMIX 1 EACH IV PRN (07:59)
[2019-09-17] MEDS: POTASSIUM CHLORIDE RIDER 10 MEQ in PREMIX 1 EACH IV SCH ×2 (13:05→14:51)
[2019-09-17] MEDS: metroNIDAZOLE 500 MG TABLET PO SCH ×2 (14:52→21:35)
[2019-09-17 20:41] LABS: % CD4 (T Cells) 16 % (32-64); % CD8 (T Cells) 63 % (15-40); 4/8 Ratio 0.3 (>=0.9)
[2019-09-17] MEDS ORDERED: CIPROFLOXACIN 500 MG TABLET PO SCH (21:00)
[2019-09-17] MEDS: SODIUM CHLORIDE 0.9% 1,000 ML IV SCH (21:37)
[2019-09-18] MEDS: hydrALAZINE 20 MG/1 ML VIAL IV PRN (04:19)
[2019-09-18] MEDS: LABETALOL 20 MG/4 ML SYRINGE IV SCH ×2 (05:59→12:22)
[2019-09-18 06:57] LABS: Calcium 8.4 MG/DL (8.5-10.1); Osmolality,Calculated 284.5 MOS/KG (273-304)
[2019-09-18 07:52] VITALS: BP 150/103
[2019-09-18] MEDS ORDERED: CIPROFLOXACIN 500 MG TABLET PO SCH (09:00)
[2019-09-18] MEDS ORDERED: SULFAMETHOX/TRIMETHOPRIM 400-80 MG TABLET PO SCH (09:00)
[2019-09-18] MEDS ORDERED: FLUCONAZOLE 100 MG TABLET PO SCH (09:00)
[2019-09-18] MEDS: metroNIDAZOLE 500 MG TABLET PO SCH (09:32)
== END 2019-09-18 13:22 | disposition home or self-care (01) | DRG 892 ==
LOC: SUATTDRO → N.GILAB 07:01 → N.5E 10:06
PROVIDERS: ADMIT Internal Medicine; ATTEND Internal Medicine